=== PATIENT | female | born 1985 | race Caucasian/White ===

== ENCOUNTER 2022-05-24 21:45 | Day surgery (SDC) | payer OTHER ==
[2022-05-24] MEDS ORDERED: hydrALAZINE 20 MG/ML VIAL ONE (22:36)
[2022-05-24] MEDS ORDERED: Labetalol HCl 100 MG/20 ML VIAL ONE (22:37)
[2022-05-24] MEDS ORDERED: Magnesium Sulfate 20 gm/500 ml 20 GM/500 ML BAG ONE (22:37)
[2022-05-24 22:39] VITALS: BMI 32.1
[2022-05-24] MEDS ORDERED: hydrALAZINE 20 MG/ML VIAL SLOW IVP PRN (23:14)
[2022-05-24 23:28] LABS: Hemoglobin 10.6 g/dL (12.0-15.5); Mean Corpuscular HGB CONC 34.4 g/dL (32.0-36.0); Mean Corpuscular Hemoglobin 30.7 pg (27.0-33.0); Mean Corpuscular Volume 89.3 fl (81.6-98.3); Mean Platelet Volume 11.1 fl (7.4-10.4); Platelet Count 192 10x3/uL (150-450); RBC Distribution Width 13.7 % (11.5-14.5); Red Blood Cell (RBC) Count 3.45 10x6/uL (3.90-5.03); White Blood Cell (WBC) Count 12.3 10x3/uL (3.5-10.5)
[2022-05-24] MEDS ORDERED: NIFEdipine XL 30 MG TAB PO SCH (23:30)
[2022-05-24] MEDS ORDERED: Acetaminophen 500 MG TAB PO SCH (23:30)
[2022-05-24] MEDS ORDERED: Ibuprofen 800 MG TAB PO PRN (23:31)
[2022-05-24 23:41] LABS: Creatinine, Urine 33.66 mg/dL (47-110); Protein, Urine Random Quant Less than 10 mg/dL (1-14)
[2022-05-24 23:48] LABS: ALT (SGPT) 17 U/L (8-55); AST (SGOT) 51 U/L (5-34); Albumin 3.6 g/dL (3.5-5.0); Alkaline Phosphatase 134 U/L (40-110); Anion Gap 17 mmol/L (10-20); BUN (Urea Nitrogen) 9 mg/dL (7.0-18.7); Bilirubin, Total 0.2 mg/dL (0.2-1.2); Calc. Creatinine Clearance 142 mL/min (70-130); Calcium 8.9 mg/dL (7.8-10.44); Carbon Dioxide 21 mmol/L (22-29); Chloride 106 mmol/L (98-107); Estimated GFR 117; Globulin 3.5 g/dL (2.4-3.5); Glucose 122 mg/dL (70-105); Potassium 4.7 mmol/L (3.5-5.1); Protein, Total 7.1 g/dL (6.0-8.3); Sodium 139 mmol/L (136-145)
== END 2022-05-25 01:30 | disposition home health service (06) ==
LOC: CSHERS 21:45 → CSHLD/OP 22:04
PROVIDERS: ATTEND Obstetrics & Gynecology
DX: O14.95 Unspecified pre-eclampsia, complicating the puerperium (principal); O99.893 Other specified diseases and conditions complicating puerperium; R00.0 Tachycardia, unspecified; O99.345 Other mental disorders complicating the puerperium; F41.0 Panic disorder [episodic paroxysmal anxiety]; Z98.890 Other specified postprocedural states
CPT/HCPCS: 80053; 82570; 84156; 85027; 99283; J0360; J3475